=== PATIENT | female | born 1970 | race Caucasian/White ===

== ENCOUNTER → 2017-05-08 | Outpatient (CLI) | payer OTHER | LOC: RAD 10:43 | DX: M25.811 Other specified joint disorders, right shoulder (principal) ==

== ENCOUNTER → 2017-05-15 | Outpatient (CLI) | payer OTHER | LOC: RAD 06:55 | DX: S46.011A Strain of muscle(s) and tendon(s) of the rotator cuff of right shoulder, initial encounter (principal); M25.711 Osteophyte, right shoulder; M19.011 Primary osteoarthritis, right shoulder; M94.8X1 Other specified disorders of cartilage, shoulder ==

== ENCOUNTER 2017-08-29 16:00 | Outpatient (RCR) | payer OTHER | END 2017-09-01 | disposition home or self-care (01) | LOC: PT | DX: M75.111 Incomplete rotator cuff tear or rupture of right shoulder, not specified as traumatic (principal); M75.81 Other shoulder lesions, right shoulder ==

== ENCOUNTER 2017-10-09 09:00 | Outpatient (RCR) | payer OTHER | END 2017-10-09 09:30 | disposition home or self-care (01) | LOC: PT 09:00 | DX: M75.111 Incomplete rotator cuff tear or rupture of right shoulder, not specified as traumatic (principal); M75.81 Other shoulder lesions, right shoulder ==

== ENCOUNTER → 2024-05-20 | Outpatient (CLI) | payer BC | LOC: RAD 15:23 → MAMMO 15:30 | DX: Z13.820 Encounter for screening for osteoporosis (principal) ==